=== PATIENT | male | born 1975 | race Two or more races ===

== ENCOUNTER 2018-07-05 13:08 | Emergency (ER) | payer MEDICAID ==
[~2018-07-05] VITALS: Ht 180.3 cm; Wt 92.8 kg
[2018-07-05 13:35] VITALS: BP 119/82
== END 2018-07-05 14:49 | disposition home or self-care (01) ==
LOC: ED 14:00
DX: S16.1XXA Strain of muscle, fascia and tendon at neck level, initial encounter (principal); S29.012A Strain of muscle and tendon of back wall of thorax, initial encounter; X50.9XXA Other and unspecified overexertion or strenuous movements or postures, initial encounter; Y93.89 Activity, other specified; Y92.488 Other paved roadways as the place of occurrence of the external cause; Y99.8 Other external cause status
CPT/HCPCS: 72050; 72072; 93005; 99284